=== PATIENT | male | born 2000 | race Two or more races ===

== ENCOUNTER 2021-06-15 02:22 | Emergency (ER) | payer OTHER ==
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
--- NOTE | 2021-06-15 06:58 | CR ---
Left femur: AP and lateral views of the left femur were obtained. Comparison: No prior femur study is available. No fracture or other bony abnormality is seen. Impression: 1. No acute bony abnormality is seen on left femur study. Diagnostic code #1
== END 2021-06-15 03:14 | disposition home or self-care (01) ==
LOC: JD.ED 02:22
DX: S70.12XA Contusion of left thigh, initial encounter (principal); W22.09XA Striking against other stationary object, initial encounter
CPT/HCPCS: 73552-26-LT; 73552-LT; 99283-25

== ENCOUNTER 2023-06-15 03:01 | Emergency (ER) | payer OTHER, BC ==
[2023-06-15] MEDS ORDERED: Sodium Chloride 0.9% 1,000 ML IV STA (03:18)
[2023-06-15] MEDS ORDERED: Sodium Chloride 0.9% 10 ML Syringe FLUSH PRN (03:18)
[2023-06-15] MEDS ORDERED: Ondansetron 4 MG/2 ML SDV IVPUSH ONE (03:18)
[2023-06-15] MEDS ORDERED: HYDROmorphone 0.5 MG/0.5 ML Syringe IVPUSH ONE (03:19)
[2023-06-15 03:24] LABS: BASOPHILS PERCENT AUTO 0.1 % (0.0-1.0); EOSINOPHILS PERCENT AUTO 0.2 % (0.0-6.0); HEMATOCRIT 48.9 % (42.0-52.0); HEMOGLOBIN 16.7 gm/dl (14.0-18.0); IMMATURE GRAN ABSOLUTE AUTO 0.03 K/mm3 (0.00-0.05); IMMATURE GRAN PERCENT AUTO 0.2 % (0.0-0.4); LYMPHOCYTES ABSOLUTE AUTO 0.4 K/mm3 (1.0-4.8); LYMPHOCYTES PERCENT AUTO 2.9 % (24.0-44.0); MEAN CORPUSCULAR HEMOGLOBIN 30.6 pg (28.0-32.0); MEAN CORPUSCULAR HGB CONC 34.2 g/dl (32.0-36.0); MEAN CORPUSCULAR VOLUME 89.7 fl (83.0-99.0); MEAN PLATELET VOLUME 10.6 fl (9.4-12.4); MONOCYTES ABSOLUTE AUTO 0.5 K/mm3 (0.0-0.8); MONOCYTES PERCENT AUTO 3.9 % (0.0-8.0); NEUTROPHILS PERCENT AUTO 92.7 % (41.0-71.0); PLATELET COUNT,PLT 232 K/mm3 (150-400); RED BLOOD CELL COUNT 5.45 M/mm3 (4.52-5.90); WHITE BLOOD CELL COUNT,WBC 12.91 K/mm3 (3.9-11.3)
[2023-06-15 03:45] LABS: A/G RATIO 1.1 (1-2); ALBUMIN 4.1 g/dl (3.4-5.0); ANION GAP 14.6 (5-15); BILIRUBIN TOTAL 0.9 mg/dL (0.2-1.0); BUN/CREATININE RATIO 16.7 (14-18); CALCIUM 9.7 mg/dL (8.5-10.1); CREATININE 0.9 mg/dL (0.7-1.3); EST CRCL DRUG DOSING (CG) 145.5 mL/min; POTASSIUM,K 4.6 mEq/L (3.5-5.1); PROTEIN TOTAL,TP 7.9 g/dl (6.4-8.2)
[2023-06-15 03:53] LABS: SLIDE REVIEW ABNORMAL SMEAR
[2023-06-15] MEDS ORDERED: Iopamidol 612 MG/ML 100 ML Bottle IVPUSH ONE (04:10)
[2023-06-15] MEDS ORDERED: Sodium Chloride 0.9% 10 ML Syringe FLUSH ONE (04:10)
== END 2023-06-15 05:31 | disposition home or self-care (01) ==
LOC: JD.ED 03:01
DX: A08.4 Viral intestinal infection, unspecified (principal)
CPT/HCPCS: 36415; 74177; 80053; 83690; 85025; 96361; 96374; 96375; 99284; J1170; J2405; J3490; J7030; Q9967

== ENCOUNTER 2024-04-28 18:44 | Emergency (ER) | payer BC, OTHER ==
[2024-04-28] MEDS ORDERED: Lidocaine 1% 10 ML MDV INJECT ONE (19:00)
[2024-04-28] MEDS ORDERED: Bupivacaine 0.5% 10 ML SDV INJECT ONE (19:00)
[2024-04-28] MEDS: Cephalexin 500 MG Cap PO ONE (20:25)
== END 2024-04-28 20:31 | disposition home or self-care (01) ==
LOC: JD.ED 18:44
DX: S61.306A Unspecified open wound of right little finger with damage to nail, initial encounter (principal); Z79.899 Other long term (current) drug therapy; W20.8XXA Other cause of strike by thrown, projected or falling object, initial encounter; Y99.0 Civilian activity done for income or pay
CPT/HCPCS: 12001; 73140; 99283; A9270; 12002; 99282